=== PATIENT | female | born 1965 | race Caucasian/White ===

== ENCOUNTER 2016-06-21 16:38 | Emergency (ER) | payer BC ==
[2016-06-21] MEDS ORDERED: Cyclobenzaprine TAB* 10 MG PO ONE ×2 (17:10→18:25)
[2016-06-21] MEDS ORDERED: Ibuprofen TAB* 400 MG PO ONE (17:10)
--- NOTE | 2016-06-21 17:10 | ED ---
Head Injury - HPI Summary HPI Summary: Patient presents after slipping in her kitchen. She fell on her right hip and struck her head on a table leg. She was able to get up after the fall without LOC, amnesia, neck pain, vomiting, or BETANCOURT. Interestingly she has pain on her left side. She is able to bear weight, but any sudden movement hurts her low back. She denies previous injury to her back, hips or head. She denies N/T, bruising, swelling or bleeding. No vision changes. - History Of Current Complaint Chief Complaint: EDExtremityLower Stated Complaint: FALL Time Seen by Provider: 06/21/16 16:46 Hx Obtained From: Patient Mechanism Of Injury: Blunt Trauma, Fall From A Standing Position Onset/Duration: Started Hours Ago - three Onset of Pain: Hours Severity Currently: Severe Severity Initially: Mild Pain Intensity: 10 Location of Head Injury: Parietal - and left low back Character: Dull, Aching Aggravating Factor(s): Movement Associated Signs And Symptoms: Negative Anticoagulant Therapy: ASA - 81mg ASA for cardioprotection - Allergies/Home Medications Allergies/Adverse Reactions: Allergies Allergy/AdvReac Type Severity Reaction Status Date / Time Penicillins Allergy Intermediate Rash Verified 06/21/16 16:41 Sulfa Antibiotics Allergy Intermediate Rash Verified 06/21/16 16:41 Erythromycin AdvReac Severe Nausea Verified 06/21/16 16:41 Enoxaparin [From Lovenox] AdvReac Intermediate See Comment Verified 06/21/16 16: 41 PMH/Surg Hx/FS Hx/Imm Hx Endocrine/Hematology History: Reports: Hx Diabetes Musculoskeletal History: Reports: Other Musculoskeletal History - obesity - Cancer History Hx Chemotherapy: No Hx Radiation Therapy: No Infectious Disease History: No Infectious Disease History: Denies: Traveled Outside the [place] in Last 30 Days - Family History Known Family History: Positive: None - Social History Occupation: Employed Full-time Lives: With Family Alcohol Use: Occasionally Substance Use Type: Reports: None Smoking Status (MU): Never Smoked Tobacco Review of Systems Negative: Fever, Chills Negative: Blurred Vision, Diplopia, Drainage Negative: Chest Pain Negative: Shortness Of Breath Negative: Abdominal Pain Positive: Myalgia - left SI joint. Negative: Decreased ROM, Edema Negative: Bruising Negative: Headache, Weakness, Paresthesia, Numbness All Other Systems Reviewed And Are Negative: Yes Physical Exam Triage Information Reviewed: Yes Vital Signs On Initial Exam: Initial Vitals Temp Pulse Resp BP Pulse Ox 98.6 F 67 16 156/81 100 06/21/16 16:41 06/21/16 16:41 06/21/16 16:41 06/21/16 16:41 06/21/16 16:41 Vital Signs Reviewed: Yes Appearance: Positive: Well-Appearing, Pain Distress, Obese Skin: Positive: Warm, Skin Color Reflects Adequate Perfusion, Dry, Soft Head/Face: Positive: Normal Head/Face Inspection Eyes: Positive: EOMI, MILI, Conjunctiva Clear ENT: Positive: Hearing grossly normal, Pharynx normal, TMs normal Neck: Positive: Supple, Nontender Respiratory/Lung Sounds: Positive: Breath Sounds Present Cardiovascular: Positive: RRR Abdomen Description: Positive: Nontender, Soft Musculoskeletal: Positive: Strength/ROM Intact - -SLR; FROM bilateral hip, and knee joints., Pain @ - TTP left SI joint and left lumbar muscles; non-tender cervical, thoracic, lumbar or sacral spine Neurological: Positive: Sensory/Motor Intact, Alert, Oriented to Person Place, Time, CN Intact II-III - Patient has a 0 value by [place] and N.O.C. CT head rules., NV Bundle Intact Distally, Abnormal Gait Psychiatric: Positive: Affect/Mood Appropriate AVPU Assessment: Alert Diagnostics - Vital Signs Vital Signs Temp Pulse Resp BP Pulse Ox 06/21/16 16:41 98.6 F 67 16 156/81 100 - Laboratory Lab Statement: Any lab studies that have been ordered have been reviewed, and results considered in the medical decision making process. - Radiology No standard instances Xray Interpretation: No Acute Changes Radiology Interpretation Completed By: Radiologist Re-Evaluation - Re-Evaluation First Eval Re-Evaluation Time: 18:15 Change: Improved - patient moving more easily Head Injury Course/Dx - Diagnoses Differential Diagnosis/HQI/PQRI: Cerebral Contusion, Concussion Without LOC, Hematoma, Intracranial Bleed, Laceration, Orbital Fracture, Skull Fracture Provider Diagnoses: Low back strain, Abrasion Discharge - Discharge Plan Condition: Stable Disposition: HOME Prescriptions: Cyclobenzaprine TAB* [Flexeril TAB*] 10 mg PO TID PRN #15 tab PRN Reason: Pain traMADol TAB* [Ultram*] 50 mg PO Q6HR PRN #16 tab MDD 4 PRN Reason: Pain Patient Education Materials: Low Back Strain (ED) Referrals: Johana Loving MD [Primary Care Provider] - Additional Instructions: Please use ibuprofen 800mg three times daily with meals for the next 3-5 days to decrease pain and potential swelling. Take flexeril and Tramadol as needed for uncontrolled pain or spasms. Apply heat several times daily to your low back. Follow-up with your PCP if your symptoms do not begin to improve in the next 7-10 days. Return to the emergency department if your symptoms worsen.
--- NOTE | 2016-06-21 17:39 | RAD ---
INDICATION: Fall. Back pain COMPARISON: None TECHNIQUE: Routine PA, lateral, and oblique imaging was performed . FINDINGS: Bones: There are no acute bony findings. There are there is osteophyte ridge most prominent about the thoracolumbar junction. L5 spondylolysis is suspected Alignment: Normal Disc spaces: The disc spaces are well-maintained Soft tissues: There are no soft tissue abnormalities. IMPRESSION: Degenerative spurring at the thoracal lumbar junction. Suspect L5 spondylolysis without anterolisthesis
[2016-06-21] MEDS ORDERED: traMADol TAB* 50 MG PO ONE (18:25)
[2016-06-21 18:34] VITALS: BP 137/65
== END 2016-06-21 18:32 | disposition home or self-care (01) ==
LOC: ED 16:38
DX: S39.012A Strain of muscle, fascia and tendon of lower back, initial encounter (principal); T14.8 Other injury of unspecified body region; W19.XXXA Unspecified fall, initial encounter; Y93.9 Activity, unspecified; Y92.9 Unspecified place or not applicable; Y99.8 Other external cause status; Z88.0 Allergy status to penicillin
CPT/HCPCS: 72110; 99283; A9270-GY

== ENCOUNTER 2019-01-15 09:13 | Emergency (ER) | payer BC ==
[2019-01-15] MEDS ORDERED: NS 0.9% 1000 ML** 1,000 ML IV ONE (10:24)
[2019-01-15] MEDS ORDERED: Ketorolac INJ* 30 MG/ML 1 ML VIAL IV PUSH ONE (10:24)
--- NOTE | 2019-01-15 10:32 | ED ---
Abdominal Pain/Female - HPI Summary HPI Summary: Patient is a 53-year-old female who presents to the emergency department with a chief complaint of having right flank pain. The patient is having the pain for the last 3 days and has been intermittent pain. Patient initially thought was due to her mattress, she has been taking ibuprofen with mild relief of symptoms. She reports no dysuria and no urinary frequency no difficulty urinating , no hematuria. Patient has no history of kidney stone. Patient reports history of dyslipidemia and factor V Leiden deficiency. She denies any fever or chills, she has no other complaints - History of Current Complaint Chief Complaint: EDFlankPain Stated Complaint: RIGHT SIDE BACK PAIN PER PT Time Seen by Provider: 01/15/19 10:20 Hx Obtained From: Patient ?: No Onset/Duration: Gradual Onset Timing: Frequency Of Episodes Severity Initially: Mild Severity Currently: Moderate Pain Intensity: 7 Allergies/Adverse Reactions: Allergies Allergy/AdvReac Type Severity Reaction Status Date / Time MS Penicillins [Penicillins] Allergy Intermediate Rash Verified 06/21/16 16:41 MS Sulfa Antibiotics Allergy Intermediate Rash Verified 06/21/16 16:41 [Sulfa Antibiotics] MS Erythromycin AdvReac Severe Nausea Verified 06/21/16 16:41 [Erythromycin] MS Enoxaparin [From Lovenox] AdvReac Intermediate See Comment Verified 06/21/16 16:41 PMH/Surg Hx/FS Hx/Imm Hx Previously Healthy: Yes Endocrine/Hematology History: Reports: Hx Diabetes Musculoskeletal History: Reports: Other Musculoskeletal History - obesity Neurological History: Denies: Other Neuro Impairments/Disorders - Cancer History Hx Chemotherapy: No Hx Radiation Therapy: No Infectious Disease History: No Infectious Disease History: Denies: Traveled Outside the [place] in Last 30 Days - Family History Known Family History: Positive: Hypertension, Diabetes - Social History Alcohol Use: Occasionally Substance Use Type: Reports: None Smoking Status (MU): Never Smoked Tobacco Review of Systems Constitutional: Negative Eyes: Negative ENT: Negative Cardiovascular: Negative Respiratory: Negative Gastrointestinal: Negative Genitourinary: Negative Positive: Other - flank Pain Skin: Negative Neurological: Negative Psychological: Normal All Other Systems Reviewed And Are Negative: Yes Physical Exam - Summary Physical Exam Summary: VITAL SIGNS: Reviewed. GENERAL: Patient is a well developed and nourished female who is lying comfortable in the stretcher. Patient is not in any acute respiratory distress. HEAD AND FACE: Normocephalic and atraumatic. EYES: PERRLA, EOMI x 2, No injected conjunctiva. EARS: Hearing grossly intact. Ear canals and tympanic membranes are WNL. MOUTH: Oropharynx within normal limits. NECK: Supple, trachea is midline, no adenopathy, no JVD. CHEST: Symmetric, no tenderness at palpation LUNGS: Clear to auscultation bilaterally. No wheezing or crackles. CVS: RRR, S1 and S2 present, no murmurs or gallops appreciated. ABDOMEN: Soft, non-tender. No signs of distention. Positive bowel sounds. No rebound no guarding, and no masses palpated. No abdominal bruit or pulsations. EXTREMITIES: FROM in all major joints, no edema, no cyanosis or clubbing. NEURO: Alert and oriented x 3. No acute neurological deficits. Speech is normal. SKIN: Dry and warm BacK: Positive right costovertebral angle tenderness. Triage Information Reviewed: Yes Vital Signs On Initial Exam: Initial Vitals Temp Pulse Resp BP Pulse Ox 97.6 F 67 14 168/88 98 01/15/19 09:15 01/15/19 09:15 01/15/19 09:15 01/15/19 09:15 01/15/19 09:15 Vital Signs Reviewed: Yes Appearance: Positive: Well-Appearing, No Pain Distress Skin: Positive: Warm Diagnostics - Vital Signs Vital Signs Temp Pulse Resp BP Pulse Ox 01/15/19 09:15 97.6 F 67 14 168/88 98 - Laboratory Result Diagrams: 01/15/19 10:41 01/15/19 10:41 Lab Statement: Any lab studies that have been ordered have been reviewed, and results considered in the medical decision making process. Abdominal Pain Fem Course/Dx - Course Course Of Treatment: Patient is a 53-year-old female with right flank pain. Blood test results without any significant abnormality. Urinalysis negative for UTI. Abdominal and pelvic CT IMPRESSION: 1. NO NEPHROLITHIASIS OR HYDROURETERONEPHROSIS. 2. BILATERAL L5 PARS DEFECTS. 3. WATER ATTENUATING 2.2 CM RIGHT RENAL CYST. In the ED course the patient was given Toradol for the pain. Since the patients CT and that was completely normal at believe that the pains are secondary to muscular skeletal pain. Therefore the patient will be discharged home with a prescription for muscle relaxants and ibuprofen. Patient is hemolyticus stable alert and oriented 3. - Diagnoses Provider Diagnoses: Back pain Discharge ED - Sign-Out/Discharge Documenting (check all that apply): Patient Departure Patient Received Moderate/Deep Sedation with Procedure: No - Discharge Plan Condition: Stable Disposition: HOME Prescriptions: Methocarbamol TAB* [Robaxin 500 MG TAB*] 500 mg PO TID PRN #12 tab PRN Reason: Spasms - Back methylPREDNISolone TAB* [Medrol TAB*] 4 - 8 mg PO .SEE JULI #1 juli Patient Education Materials: Low Back Strain (ED) Referrals: Johana Loving MD [Primary Care Provider] - Additional Instructions: Take medications as instructed. No heavy lifting. Follow-up with primary care physician the next 2-3 days. Return to the emergency department if the symptoms return or worsen. - Billing Disposition and Condition Condition: STABLE Disposition: Home
[2019-01-15 10:45] LABS: Urine Appearance Cloudy; Urine Bilirubin Negative (Negative); Urine Blood Negative (Negative); Urine Color Yellow; Urine Glucose Negative (Negative); Urine Ketones Negative (Negative); Urine Nitrite Negative (Negative); Urine Protein Negative (Negative); Urine Specific Gravity 1.017 (1.010-1.030); Urine Urobilinogen Negative (Negative)
[2019-01-15 10:54] LABS: ABS Basophils 0.1 10^3/ul (0-0.2); ABS Eosinophils 0.3 10^3/ul (0-0.6); ABS Lymphocytes 2.8 10^3/ul (1.0-4.8); ABS Monocytes 0.5 10^3/ul (0-0.8); ABS Neutrophils 3.5 10^3/ul (1.5-7.7); Eosinophil % 4.1 %; Hematocrit 42 % (35-47); Hemoglobin 14.3 g/dL (12.0-16.0); Lymphocyte % 39.3 %; Mean Corpuscular HGB Conc 34 g/dL (31-36); Mean Corpuscular Hemoglobin 28 pg (27-31); Mean Corpuscular Volume 84 fL (80-97); Mean Platelet Volume 8.1 fL (7.4-10.4); Platelet Count 267 10^3/uL (150-450); Red Blood Count 5.02 10^6 /uL (3.70-4.87); Red Cell Distribution Width 13 % (10-15); White Blood Count 7.2 10^3/uL (3.5-10.8)
[2019-01-15 11:10] LABS: ALT 26 U/L (7-52); AST 19 U/L (13-39); Albumin 4.1 g/dL (3.2-5.2); Albumin/Globulin Ratio 1.7 (1-3); Alkaline Phosphatase 69 U/L (34-104); Anion Gap 6 mmol/L (2-11); BUN/Creatinine Ratio 18.3 (8-20); Blood Urea Nitrogen 15 mg/dL (6-24); C Reactive Protein 5.07 mg/L (<8.01); CO2 Carbon Dioxide 26 mmol/L (22-32); Calcium 8.8 mg/dL (8.6-10.3); Chloride 106 mmol/L (101-111); EGFR African American 88.6 (>60); EGFR Non-African American 73.2 (>60); Globulin 2.4 g/dL (2-4); Glucose 98 mg/dL (70-100); Potassium 3.8 mmol/L (3.5-5.0); Sodium 138 mmol/L (135-145); Total Protein 6.5 g/dL (6.4-8.9)
[2019-01-15 11:15] LABS: HCG Pregnancy < 0.60 mIU/mL
[2019-01-15 11:55] VITALS: BP 125/70
== END 2019-01-15 11:54 | disposition home or self-care (01) ==
LOC: ED 09:13
DX: M54.5 Low back pain (principal); N28.1 Cyst of kidney, acquired; E11.9 Type 2 diabetes mellitus without complications; Z88.1 Allergy status to other antibiotic agents; Z88.0 Allergy status to penicillin; Z88.2 Allergy status to sulfonamides; Z88.8 Allergy status to other drugs, medicaments and biological substances
CPT/HCPCS: 36415; 74176; 80053; 81003; 83690; 84702; 85025; 86140; 96361; 96374; 99282; J1885